=== PATIENT | male | born 1970 | race Caucasian/White ===

== ENCOUNTER 2017-11-21 23:39 | Emergency (ER) | payer OTHER ==
[~2017-11-21] VITALS: Ht 175.3 cm; Wt 99.8 kg
[~2017-11-21 23:39] MED LIST: AVANDAMET 1 MG/1 TAB; GLUCOPHAGE XR500 MG; HYZAAR 100/25 T1 TAB
[2017-11-21] MEDS ORDERED: CLONAZEPAM2 MG PO (23:48)
[2017-11-21] MEDS ORDERED: WELLBUTRIN SR150 MG PO (23:48)
[2017-11-21] MEDS ORDERED: TOPROL XL50 M1 PO (23:48)
[2017-11-21] MEDS ORDERED: LIPITOR20 MG PO (23:48)
[2017-11-21] MEDS ORDERED: GLIPIZIDE ER5 MG PO (23:49)
[2017-11-21] MEDS ORDERED: ASPIR 8181 MG PO (23:49)
[2017-11-21] MEDS ORDERED: JANUMET 50-1,01 EACH PO (23:49)
[2017-11-22] MEDS ORDERED: KETO10TA2 PO (04:59)
[2017-11-22] MEDS ORDERED: WELLBUTRIN SR150 MG PO (05:02)
[2017-11-22] MEDS ORDERED: ASPIR 8181 MG PO (05:02)
[2017-11-22] MEDS ORDERED: GLIPIZIDE ER5 MG PO (05:02)
[2017-11-22] MEDS ORDERED: JANUMET 50-1,01 EACH PO (05:02)
[2017-11-22] MEDS ORDERED: LIPITOR20 MG PO (05:02)
[2017-11-22] MEDS ORDERED: TOPROL XL50 M1 PO (05:02)
[2017-11-22] MEDS ORDERED: NORFLEX100MG PO (05:03)
[2017-11-22] MEDS ORDERED: LANTUS SOL100 UNIT/1 SUBCUTANEO (05:08)
== END 2017-11-22 05:04 | disposition home or self-care (01) ==
LOC: ER 23:39
DX: R07.89 Other chest pain (principal); E11.65 Type 2 diabetes mellitus with hyperglycemia